=== PATIENT | female | born 1950 | race Caucasian/White ===

== ENCOUNTER 2022-04-19 01:26 | Inpatient (IN) ==
[2022-04-19] MEDS ORDERED: SODIUM CHLORIDE 0.9% 1000ML 1,000 ML IV STA (01:35)
[2022-04-19] MEDS ORDERED: ONDANSETRON INJ 2 MG/ML 2 ML VIAL IV STA ×2 (01:35→04:28)
--- NOTE | 2022-04-19 02:17 | Emergency Department Note ---
History of Present Illness General Chief complaint: Vomiting Stated complaint: VOMITING FOR 2 DAYS,NOT EATING Time Seen by Provider: 04/19/22 01:52 History of Present Illness 71-year-old female presents emergency department with a 1 day history of vomiting and diarrhea. Patient states that she tested positive for COVID yesterday at the clinic. Patient states her symptoms started 1 week ago. Patient states that when she vomits she vomits up phlegm. Patient states decreased p.o. intake and some associated diarrhea. Patient denies fever denies cough denies chest pain. There are no other mitigating or alleviating factors Home Medications Medication Instructions Recorded Confirmed Type Lexapro 10 mg PO DAILY 04/19/22 04/19/22 History atorvastatin 40 mg tablet 40 mg PO DAILY 04/19/22 04/19/22 History dulaglutide 0.75 mg/0.5 mL 0.75 mg subcut WK 04/19/22 04/19/22 History subcutaneous pen injector (Trulicity) empagliflozin 25 mg tablet 25 mg PO DAILY 04/19/22 04/19/22 History (Jardiance) glimepiride 2 mg PO DAILY 04/19/22 04/19/22 History lisinopril 2.5 mg tablet 2.5 mg PO DAILY 04/19/22 04/19/22 History Allergies Allergy/AdvReac Type Severity Reaction Status Date / Time Penicillins Allergy Unknown Verified 04/19/22 01:52 Past Med/Surg History Social History Smoking Status: Never smoker Preferred Language: Tanzanian Feels Safe at Home: Yes Immunizations: Past medical history includes type 2 diabetes, hypertension, pancreatitis after surgery. Past surgical history includes x3, cholecystitis with complications Review of Systems A total of 10 systems reviewed and were otherwise negative Constitutional: + body aches; no fever Respiratory: + cough Gastrointestinal: + vomiting Physical Exam Vital Signs Vital Signs - 24 hr 04/19/22 01:31 04/19/22 01:36 04/19/22 03:37 Temperature 36.7 C Temperature Source Temporal Artery Scan Pulse Rate 110 H Pulse Rate [Apical] 83 Respiratory Rate 16 17 Respiratory Effort / Characteristics Non-Labored Respiratory Depth Normal Blood Pressure 127/79 Blood Pressure [Right Arm] 142/83 H Blood Pressure Mean 95 Blood Pressure Mean [Right Arm] 102 Pulse Oximetry 99 99 Oxygen Delivery Method Room Air Room Air Room Air Sepsis Recent Fever Within 48 Hours No Sepsis New/Unexplained Change in Mental Status No Sepsis Action Taken by Nursing No Action Required GENERAL: Patient is awake alert in no acute distress patient is resting comfortably and showing no signs of anxiety EYES: The conjunctivae are clear. The pupils are round and reactive. EARS, NOSE, MOUTH AND THROAT: The nose is without any evidence of any deformity. Mucous membranes are moist. Tongue is midline. NECK: The neck is nontender and supple. RESPIRATORY: Normal respiratory effort is noted there is no evidence of wheezing rhonchi or rales CARDIOVASCULAR: Regular rate and rhythm noted there no murmurs rubs or gallops normal S1 normal S2. GASTROINTESTINAL: The abdomen is soft. Abdomen is nontender. BACK: No midline tenderness or or step-off noted range of motion in flexion extension as well as rotation no signs of muscle spasm noted MUSCULOSKELETAL/EXTREMITIES: There is no evidence of gross deformity full range of motion is noted in the hips and shoulders. SKIN: There is no obvious evidence of any rash. There are no petechiae, pallor or cyanosis noted. NEUROLOGIC: Patient is awake alert and oriented x3 strength is symmetric PSYCH: Normal affect Course Reevaluation(s) Reevaluation #1: Patient's heart rate is 83 on repeat examination telemetry shows normal sinus rhythm with a rate of 83 as interpreted by me Time: 02:20 Reevaluation #2: Patient started on IV fluids. The case was discussed with the [facility]ist for admission. Consultations Consultation #1: Spoke with the [facility] hospitalist Dr. Flores for admission he agrees with admission for inpatient admission for dehydration and elevated troponin Time: 04:05 Administered Medications Discontinued Medications Sodium Chloride (Nss 1000ml) 1,000 mls @ 999 mls/hr IV .Q1H1M STA Stop: 04/19/22 02:35 Last Infusion: 04/19/22 03:38 Dose: 0 mls/hr Documented By: Admin: 04/19/22 02:15 Dose: 999 mls/hr Documented By: BALBINA Sodium Chloride (Nss 1000ml) 1,000 mls @ 999 mls/hr IV .Q1H1M ONE Stop: 04/19/22 04:22 Last Admin: 04/19/22 03:38 Dose: 999 mls/hr Documented By: JAG Ondansetron HCl (Ondansetron Inj 2 Mg/Ml 2 Ml Vial) 4 mg IV NOW STA Stop: 04/19/22 01:36 Last Admin: 04/19/22 02:15 Dose: 4 mg Documented By: BALBINA Medical Decision Making Medical Records Attestation: I reviewed the patient's medical records. Home Medications Current Medication List: was personally reviewed by me Laboratory Data Attestation: I reviewed the patient's lab results. Patient has an elevated hemoglobin which makes me think that the patient is hemoconcentrated and dehydrated; patient has an elevated troponin of unknown jose l ology 04/19/22 Unknown 04/19/22 Unknown Lab Results 04/19/22 04/19/22 04/19/22 Range/Units 03:30 Unknown Unknown WBC 6.15 (4.8-10.8) K/ul RBC 5.15 (3.93-5.22) M/uL Hgb 16.4 H (12.0-16.0) g/dl Hct 45.8 H (34.1-44.9) % MCV 88.9 (80.0-100.0) fL MCH 31.8 (25.0-34.0) pg MCHC 35.8 (32.0-36.0) g/dL RDW Std Deviation 41.2 (36.4-46.3) fL RDW Coeff of [place] 12.6 (11.5-14.5) % Plt Count 195 (130-400) K/uL MPV 9.2 L (9.4-12.3) fL Immature Gran % (Auto) 0.8 % Neut % (Auto) 83.5 % Lymph % (Auto) 11.4 % [place] % (Auto) 3.9 % Eos % (Auto) 0.2 % Baso % (Auto) 0.2 % Neut # (Auto) 5.14 (1.4-6.5) K/uL Lymph # (Auto) 0.70 L (1.2-3.4) K/uL [place] # (Auto) 0.24 (0.24-0.82) K/uL Eos # (Auto) 0.01 (0-0.50) K/uL Baso # (Auto) 0.01 (0-0.2) K/uL Immature Gran # (Auto) 0.05 H (0.00-0.02) K/uL Sodium 138 (136-145) mmol/L Potassium 3.6 (3.5-5.1) mmol/L Chloride 99 (98-107) mmol/L Carbon Dioxide 22 (21-32) mmol/L Anion Gap 17 H (3-11) BUN 13 (6-23) mg/dl Creatinine 0.66 (0.6-1.2) mg/dl Est Cr Clr Drug Dosing 62.8 ml/min Est GFR ( Amer) 101.6 ml/min Est GFR (Non-Af Amer) 87.6 ml/min BUN/Creatinine Ratio 19.7 (10-20) Glucose 151 H (70-99(Fasting)) mg/dl Calcium 10.1 (8.5-10.1) mg/dl Total Bilirubin 1.4 H (0.2-1.0) mg/dl AST 31 (13-39) U/L ALT 16 (7-52) U/L Alkaline Phosphatase 79 (34-104) U/L Troponin I High Sens 64.9 H* (0-14) pg/ml Total Protein 7.9 (6.0-8.3) gm/dl Albumin 4.5 (3.4-5.0) gm/dl Globulin 3.4 (2.5-4.0) gm/dl Albumin/Globulin Ratio 1.3 (0.9-2) Lipase 14 (11-82) U/L Urine Color Urine Appearance (Clear) Urine pH (4.5-7.5) Ur Specific [place] (1.000-1.030) Urine Protein (Negative) Urine Glucose (UA) (Negative) Urine Ketones (Negative) Urine Blood (Negative) Urine Nitrite (Negative) Urine Bilirubin (Negative) Urine Urobilinogen (Negative) Ur Leukocyte Esterase (Negative) Urine WBC (Auto) (0-5) /hpf Urine RBC (Auto) (0-4) /hpf U Hyaline Cast (Auto) (0-5) /lpf U Epithel Cells (Auto) (0-5) /lpf Urine Bacteria (Auto) (Negative) SARS-CoV-2, RNA, NAAT POSITIVE A* (NEGATIVE) 04/19/22 Range/Units Unknown WBC (4.8-10.8) K/ul RBC (3.93-5.22) M/uL Hgb (12.0-16.0) g/dl Hct (34.1-44.9) % MCV (80.0-100.0) fL MCH (25.0-34.0) pg MCHC (32.0-36.0) g/dL RDW Std Deviation (36.4-46.3) fL RDW Coeff of [place] (11.5-14.5) % Plt Count (130-400) K/uL MPV (9.4-12.3) fL Immature Gran % (Auto) % Neut % (Auto) % Lymph % (Auto) % [place] % (Auto) % Eos % (Auto) % Baso % (Auto) % Neut # (Auto) (1.4-6.5) K/uL Lymph # (Auto) (1.2-3.4) K/uL [place] # (Auto) (0.24-0.82) K/uL Eos # (Auto) (0-0.50) K/uL Baso # (Auto) (0-0.2) K/uL Immature Gran # (Auto) (0.00-0.02) K/uL Sodium (136-145) mmol/L Potassium (3.5-5.1) mmol/L Chloride (98-107) mmol/L Carbon Dioxide (21-32) mmol/L Anion Gap (3-11) BUN (6-23) mg/dl Creatinine (0.6-1.2) mg/dl Est Cr Clr Drug Dosing ml/min Est GFR ( Amer) ml/min Est GFR (Non-Af Amer) ml/min BUN/Creatinine Ratio (10-20) Glucose (70-99(Fasting)) mg/dl Calcium (8.5-10.1) mg/dl Total Bilirubin (0.2-1.0) mg/dl AST (13-39) U/L ALT (7-52) U/L Alkaline Phosphatase (34-104) U/L Troponin I High Sens (0-14) pg/ml Total Protein (6.0-8.3) gm/dl Albumin (3.4-5.0) gm/dl Globulin (2.5-4.0) gm/dl Albumin/Globulin Ratio (0.9-2) Lipase (11-82) U/L Urine Color Yellow Urine Appearance Clear (Clear) Urine pH 5.0 (4.5-7.5) Ur Specific [place] 1.044 H (1.000-1.030) Urine Protein 1+ H (Negative) Urine Glucose (UA) 3+ H (Negative) Urine Ketones 4+ H (Negative) Urine Blood Negative (Negative) Urine Nitrite Negative (Negative) Urine Bilirubin Negative (Negative) Urine Urobilinogen Negative (Negative) Ur Leukocyte Esterase Negative (Negative) Urine WBC (Auto) 1-5 (0-5) /hpf Urine RBC (Auto) 0-4 (0-4) /hpf U Hyaline Cast (Auto) 1-5 (0-5) /lpf U Epithel Cells (Auto) >30 H (0-5) /lpf Urine Bacteria (Auto) Negative (Negative) SARS-CoV-2, RNA, NAAT (NEGATIVE) Imaging Data Attestation: I personally reviewed and interpreted this imaging study as follows: My Impression: Chest x-ray interpreted by me negative for infiltrate Radiologist's Impression: Chest X-Ray 04/19/22 02:12 SINGLE VIEW CHEST CLINICAL HISTORY: Cough FINDINGS: 2 AP, portable, upright chest radiographs are obtained. No prior studies are available for comparison at the time of dictation. The cardiomediast inal silhouette is unremarkable. The lungs and pleural spaces are clear. No pneumothorax is seen. The skeletal structures are osteopenic. The bony thorax is grossly intact. IMPRESSION: No active disease in the chest. ACT 112: Negative or not required by law. Electronically signed by: Bruno De La Paz M.D. 04/19/2022 2:40 AM ECG Data Attestation: I personally reviewed and interpreted this ECG as follows: Additional Comments: -EKG interpreted by me normal sinus rhythm rate of 80 left axis deviation, prolonged QTC at 507, no obvious ST segment elevation or depressiom, otherwise normal intervals MDM Narrative Medical decision making differential diagnosis includes dehydration, electrolyte abnormality, COVID, pneumonia, bronchitis, upper respiratory tract infection. Is to check labs, give IV fluids and nausea medicine Nursing notes reviewed and appreciated There are no external medical records for my review Patient has an elevated troponin, elevated hemoglobin, patient's clinical presentation is one of dehydration. Patient has a nonischemic EKG the etiology of the troponin is unknown at this time. She has no current chest pain. The case was discussed with the [facility] hospitalist for admission. Impression & Plan Acute dehydration, COVID-19, Elevated troponin Discharge Plan Visit Data Chief Complaint: Vomiting Stated Complaint: VOMITING FOR 2 DAYS,NOT EATING ED Provider: Thuan Hussein Discharge Problem: Acute dehydration, COVID-19, Elevated troponin Patient Disposition: Admitted As Inpatient Forms Stand Alone Forms: My [facility] Prescriptions Prescriptions: No Action atorvastatin 40 mg Tablet 40 mg PO DAILY lisinopril 2.5 mg Tablet 2.5 mg PO DAILY Jardiance 25 mg Tablet 25 mg PO DAILY Trulicity 0.75 mg/0.5 mL Pen Injector 0.75 mg SUBCUT WK Lexapro 10 mg PO DAILY glimepiride 2 mg PO DAILY Referrals Referrals: PCP,NO [Physician] -
[2022-04-19 02:26] LABS: Basophils # (auto) 0.01 K/uL (0-0.2); Basophils % (auto) 0.2 %; Eosinophils # (auto) 0.01 K/uL (0-0.50); Eosinophils % (auto) 0.2 %; Hematocrit (blood only) 45.8 % (34.1-44.9); Hemoglobin 16.4 g/dl (12.0-16.0); Immature Granulocytes # (auto) 0.05 K/uL (0.00-0.02); Immature Granulocytes % (auto) 0.8 %; Lymphocytes % (auto) 11.4 %; Mean Corpuscular Hemoglobin 31.8 pg (25.0-34.0); Mean Corpuscular Hgb Conc 35.8 g/dL (32.0-36.0); Mean Corpuscular Volume 88.9 fL (80.0-100.0); Mean Platelet Volume 9.2 fL (9.4-12.3); Monocytes # (auto) 0.24 K/uL (0.24-0.82); Monocytes % (auto) 3.9 %; Neutrophils # (auto) 5.14 K/uL (1.4-6.5); Neutrophils % (auto) 83.5 %; Platelet Count 195 K/uL (130-400); RDW Coefficient of Variation 12.6 % (11.5-14.5); RDW Standard Deviation 41.2 fL (36.4-46.3); Red Blood Count 5.15 M/uL (3.93-5.22); White Blood Count 6.15 K/ul (4.8-10.8)
[2022-04-19 02:31] LABS: Appearance Urine Clear (Clear); Bacteria Urine Automated Negative (Negative); Bilirubin Urine Negative (Negative); Blood Urine Negative (Negative); Color Urine Yellow; Epithelial Cell Urine Auto >30 /lpf (0-5); Glucose Urine UA 3+ (Negative); Ketones Urine 4+ (Negative); Leukocyte Esterase Urine Negative (Negative); Nitrite Urine Negative (Negative); Protein Urine 1+ (Negative); RBC Urine Automated 0-4 /hpf (0-4); Specific Gravity Urine 1.044 (1.000-1.030); Urobilinogen Urine Negative (Negative)
--- NOTE | 2022-04-19 02:42 | XRay Report ---
SINGLE VIEW CHEST CLINICAL HISTORY: Cough FINDINGS: 2 AP, portable, upright chest radiographs are obtained. No prior studies are available for comparison at the time of dictation. The cardiomediastinal silhouette is unremarkable. The lungs and pleural spaces are clear. No pneumothorax is seen. The skeletal structures are osteopenic. The bony t horax is grossly intact. IMPRESSION: No active disease in the chest. ACT 112: Negative or not required by law. Electronically signed by: Bruno De La Paz M.D. 04/19/2022 2:40 AM
[2022-04-19 02:58] LABS: Albumin Globulin Ratio 1.3 (0.9-2); Albumin Level 4.5 gm/dl (3.4-5.0); BUN Creatinine Ratio 19.7 (10-20); Bilirubin,Total 1.4 mg/dl (0.2-1.0); Calcium 10.1 mg/dl (8.5-10.1); Creatinine Clr Calc Pharmacy 62.8 ml/min; Est GFR (African American) 101.6 ml/min; Est GFR (Non-African American) 87.6 ml/min; Globulin 3.4 gm/dl (2.5-4.0); Potassium 3.6 mmol/L (3.5-5.1); Total Protein 7.9 gm/dl (6.0-8.3)
[2022-04-19 03:17] LABS: Troponin I High Sensitivity 64.9 pg/ml (0-14)
[2022-04-19] MEDS ORDERED: SODIUM CHLORIDE 0.9% 1000ML 1,000 ML IV ONE (03:22)
[2022-04-19] MEDS ORDERED: LACTATED RINGER'S 1,000 ML IV STA (04:49)
--- NOTE | 2022-04-19 04:55 | History & Physical Report ---
Date of Service April 19, 2022 Assessment & Plan (1) UGIB (upper gastrointestinal bleed): Plan: Transient hematemesis secondary to COVID-19 related gastroenteritis Esophagitis on CT Patient currently hemodynamically stable hypertension, slightly elevated secondary discomfort hyperlipidemia, on statin Rx DM2 on oral medications, suboptimal control as of recent hemoglobin A1c of 7.6 last February 2022 history of PE status post anticoagulation, secondary to confinement for pancreatitis about 20 years ago mood disorder, stable OBS Medical telemetry IV PPI Clear liquids for now GI consult Re: UGI B Supportive management for COVID-19 illness Basal bolus insulin, ISS BG goal 1 10-1 40, carb count coverage DVT prophylaxis. SCDs Re: GI bleed Full code Text document was generated using [employer] voice recognition software. It may contain grammatical or spelling errors. Kindly contact undersigned for clarification of any documentation item in question. History of Present Illness Chief Complaint: Vomiting, weakness, abdominal pain Primary Care Provider: Vy Mcclendon DO History obtained from patient, family, and records. Medical history significant for hypertension, hyperlipidemia, DM2 on oral medications, past history of pancreatitis, history of PE status post anticoagulation, mood disorder. Few days of watery diarrhea with achy abdominal pain. Transient hematemesis 2 days ago. No actual chest pain, productive cough, or shortness of breath. Dizziness symptoms without headache. Feels like something stuck in in the middle of her chest. 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 Has received COVID-19 vaccination except boosters. Patient brought to the ER for evaluation. Medical History as above 2015 colonoscopy showed internal hemorrhoids Surgical History : section, cholecystectomy, knee surgery Family History : Heart disease, colon cancer, Romeo-Sachs disease Personal/Social history : Non-smoker, no EtOH intake, school regional owner operator truck driver Allergies Allergy/AdvReac Type Severity Reaction Status Date / Time Penicillins Allergy Unknown Verified 04/19/22 01:52 Home Medications Medication Instructions Recorded Confirmed Type Lexapro 10 mg PO DAILY 04/19/22 04/19/22 History atorvastatin 40 mg tablet 40 mg PO DAILY 04/19/22 04/19/22 History dulaglutide 0.75 mg/0.5 mL 0.75 mg subcut WK 04/19/22 04/19/22 History subcutaneous pen injector (Trulicity) empagliflozin 25 mg tablet 25 mg PO DAILY 04/19/22 04/19/22 History (Jardiance) glimepiride 2 mg PO DAILY 04/19/22 04/19/22 History lisinopril 2.5 mg tablet 2.5 mg PO DAILY 04/19/22 04/19/22 History Past Med/Surg History Social History Smoking Status: Former smoker Second Hand Exposure: No; Do You Dip or Chew Tobacco: No; Tobacco Cessation Education Requested by Patient: No Hx Alcohol Use: No Hx Substance Use: No Preferred Language: Irish Communication Ability: Effective 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 Beliefs That Will Affect Care: None Current Living Situation: Spouse Other Information That Helps Us Care for You: No Feels Safe at Home: Yes Safety Concerns: Feels Safe At This Time Assistive Devices: None Review of Systems Review of Systems: As per HPI, all other systems reviewed and negative Physical Exam Physical Exam: GENERAL: Slightly uncomfortable, pleasant, no respiratory distress SKIN: Normal color, warm HEENT: [place] palpebral conjunctivae, no ptosis, dry buccal mucosa NECK : Supple, no tenderness CHEST : CTA, no tenderness HEART : RRR, no obvious murmurs ABDOMEN: Some distention, minimal epigastric tenderness EXTREMITIES : No LE swelling/tenderness, no other conspicuous deformities noted NEUROLOGIC : Coherent, no facial asymmetry, no other gross focality Results & Data Results & Data ([facility]) Vital Signs (Past 12 Hours) Vital Signs Temp Pulse Pulse Resp BP BP Pulse Ox 04/19/22 04:30 82 14 100 04/19/22 04:00 91 H 23 99 04/19/22 04:00 137/80 04/19/22 03:37 142/83 H 04/19/22 03:37 82 20 99 04/19/22 03:30 88 20 98 04/19/22 03:00 87 16 98 04/19/22 02:30 89 25 H 100 04/19/22 02:11 87 17 99 04/19/22 02:10 153/82 H 04/19/22 03:37 83 17 142/83 H 99 04/19/22 01:36 04/19/22 01:31 36.7 C 110 H 16 127/79 99 O2 Del Method 04/19/22 04:30 04/19/22 04:00 04/19/22 04:00 04/19/22 03:37 04/19/22 03:37 04/19/22 03:30 04/19/22 03:00 04/19/22 02:30 04/19/22 02:11 04/19/22 02:10 04/19/22 03:37 Room Air 04/19/22 01:36 Room Air 04/19/22 01:31 Room Air Laboratory Results Laboratory Results WBC 6.15 K/ul (4.8-10.8) 04/19/22 Unknown RBC 5.15 M/uL (3.93-5.22) 04/19/22 Unknown Hgb 16.4 g/dl (12.0-16.0) H 04/19/22 Unknown Hct 45.8 % (34.1-44.9) H 04/19/22 Unknown MCV 88.9 fL (80.0-100.0) 04/19/22 Unknown MCH 31.8 pg (25.0-34.0) 04/19/22 Unknown MCHC 35.8 g/dL (32.0-36.0) 04/19/22 Unknown RDW Std Deviation 41.2 fL (36.4-46.3) 04/19/22 Unknown RDW Coeff of Bayron 12.6 % (11.5-14.5) 04/19/22 Unknown Plt Count 195 K/uL (130-400) 04/19/22 Unknown MPV 9.2 fL (9.4-12.3) L 04/19/22 Unknown Immature Gran % (Auto) 0.8 % 04/19/22 Unknown Neut % (Auto) 83.5 % 04/19/22 Unknown Lymph % (Auto) 11.4 % 04/19/22 Unknown [place] % (Auto) 3.9 % 04/19/22 Unknown Eos % (Auto) 0.2 % 04/19/22 Unknown Baso % (Auto) 0.2 % 04/19/22 Unknown Neut # (Auto) 5.14 K/uL (1.4-6.5) 04/19/22 Unknown Lymph # (Auto) 0.70 K/uL (1.2-3.4) L 04/19/22 Unknown [place] # (Auto) 0.24 K/uL (0.24-0.82) 04/19/22 Unknown Eos # (Auto) 0.01 K/uL (0-0.50) 04/19/22 Unknown Baso # (Auto) 0.01 K/uL (0-0.2) 04/19/22 Unknown Immature Gran # (Auto) 0.05 K/uL (0.00-0.02) H 04/19/22 Unknown Sodium 138 mmol/L (136-145) 04/19/22 Unknown Potassium 3.6 mmol/L (3.5-5.1) 04/19/22 Unknown Chloride 99 mmol/L (98-107) 04/19/22 Unknown Carbon Dioxide 22 mmol/L (21-32) 04/19/22 Unknown Anion Gap 17 (3-11) H 04/19/22 Unknown BUN 13 mg/dl (6-23) 04/19/22 Unknown Creatinine 0.66 mg/dl (0.6-1.2) 04/19/22 Unknown Est Cr Clr Drug Dosing 62.8 ml/min 04/19/22 Unknown Est GFR ( Amer) 101.6 ml/min 04/19/22 Unknown Est GFR (Non-Af Amer) 87.6 ml/min 04/19/22 Unknown BUN/Creatinine Ratio 19.7 (10-20) 04/19/22 Unknown Glucose 151 mg/dl (70-99(Fasting)) H 04/19/22 Unknown Calcium 10.1 mg/dl (8.5-10.1) 04/19/22 Unknown Total Bilirubin 1.4 mg/dl (0.2-1.0) H 04/19/22 Unknown AST 31 U/L (13-39) 04/19/22 Unknown ALT 16 U/L (7-52) 04/19/22 Unknown Alkaline Phosphatase 79 U/L (34-104) 04/19/22 Unknown Troponin I High Sens 64.9 pg/ml (0-14) H* 04/19/22 Unknown Total Protein 7.9 gm/dl (6.0-8.3) 04/19/22 Unknown Albumin 4.5 gm/dl (3.4-5.0) 04/19/22 Unknown Globulin 3.4 gm/dl (2.5-4.0) 04/19/22 Unknown Albumin/Globulin Ratio 1.3 (0.9-2) 04/19/22 Unknown Lipase 14 U/L (11-82) 04/19/22 Unknown Urine Color Yellow 04/19/22 Unknown Urine Appearance Clear (Clear) 04/19/22 Unknown Urine pH 5.0 (4.5-7.5) 04/19/22 Unknown Ur Specific [place] 1.044 (1.000-1.030) H 04/19/22 Unknown Urine Protein 1+ (Negative) H 04/19/22 Unknown Urine Glucose (UA) 3+ (Negative) H 04/19/22 Unknown Urine Ketones 4+ (Negative) H 04/19/22 Unknown Urine Blood Negative (Negative) 04/19/22 Unknown Urine Nitrite Negative (Negative) 04/19/22 Unknown Urine Bilirubin Negative (Negative) 04/19/22 Unknown Urine Urobilinogen Negative (Negative) 04/19/22 Unknown Ur Leukocyte Esterase Negative (Negative) 04/19/22 Unknown Urine WBC (Auto) 1-5 /hpf (0-5) 04/19/22 Unknown Urine RBC (Auto) 0-4 /hpf (0-4) 04/19/22 Unknown U Hyaline Cast (Auto) 1-5 /lpf (0-5) 04/19/22 Unknown U Epithel Cells (Auto) >30 /lpf (0-5) H 04/19/22 Unknown Urine Bacteria (Auto) Negative (Negative) 04/19/22 Unknown SARS-CoV-2, RNA, NAAT POSITIVE (NEGATIVE) A* 04/19/22 03:30 Impressions Chest X-Ray 04/19/22 02:12 SINGLE VIEW CHEST CLINICAL HISTORY: Cough FINDINGS: 2 AP, portable, upright chest radiographs are obtained. No prior studies are available for comparison at the time of dictation. The cardiomediastinal silhouette is unremarkable. The lungs and pleural spaces are clear. No pneumothorax is seen. The skeletal structures are osteopenic. The bony thorax is grossly intact. IMPRESSION: No active disease in the chest. ACT 112: Negative or not required by law. Electronically signed by: Bruno De La Paz M.D. 04/19/2022 2:[address] abdomen pelvis: 1. Mild distal esophageal wall thickening with trace edema. Correlate clinically to exclude esophagitis. 2. Trace edema within the splenic hilum tracking along the greater curvature of the stomach. There is loculated fluid versus a cystic lesion within the lesser sac measuring up to 4.1 cm. Attention at follow-up recommended. 3. 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 Numerous upper abdominal collateral vessels. 4. Atrophy of the pancreatic body and tail. 5. No bowel obstruction or bowel wall thickening Diagnostic Findings EKG as per my interpretation : Rate 80, NSR, LAD, LAFB, no ischemia
[2022-04-19] MEDS ORDERED: PROMETHAZINE HCL 6.25 MG in SODIUM CHLORIDE 0.9% 50 ML IV PRN (05:00)
[2022-04-19] MEDS ORDERED: traMADol HCL 50 MG TABLET PO PRN (05:00)
[2022-04-19 05:17] LABS: Partial Thromboplastin Ratio 0.9; Partial Thromboplastin Time 24.2 Seconds (21.0-31.0)
[2022-04-19] MEDS ORDERED: PANTOprazole 40 MG in SYRINGE 0 ML IV STA (05:18)
[2022-04-19 05:48] LABS: Hemoglobin 13.6 g/dl (12.0-16.0)
[2022-04-19 06:11] LABS: Magnesium 1.7 mg/dl (1.7-2.4)
[2022-04-19 06:15] LABS: Troponin I High Sensitivity 122.4 pg/ml (0-14)
[2022-04-19] MEDS ORDERED: DEXTROSE 50% 50 ML SYRINGE IV PRN (06:22)
[2022-04-19] MEDS ORDERED: GLUCAGON FOR INJ 1 MG VIAL SQ PRN (06:22)
[2022-04-19] MEDS ORDERED: GLUCOSE 40% GEL 15 GM TUBE PO PRN (06:22)
[2022-04-19] MEDS ORDERED: ACETAMINOPHEN 325 MG TAB PO PRN (06:22)
[2022-04-19] MEDS ORDERED: OPTIRAY 350 100ml IV ONE (06:22)
[2022-04-19] MEDS ORDERED: CARBOHYDRATES FOR HYPOGLYCEMIA PO PRN (06:22)
[2022-04-19] MEDS ORDERED: GLUCOSE 10 TAB/TUBE PO PRN (06:22)
--- NOTE | 2022-04-19 06:46 | CT Scan Report ---
ABDOMEN AND PELVIS CT WITH IV CONTRAST CT DOSE: 294.01 mGy.cm HISTORY: Acute nausea with vomiting and upper GI bleed abd pain ugib TECHNIQUE: Multiaxial CT images of the abdomen and pelvis were performed following the IV administrat ion of 82 cc of Optiray, A dose lowering technique was utilized adhering to the principles of ALARA. COMPARISON STUDY: Chest radiograph of same day FINDINGS: Clear lung bases. 4 mm fissural nodule of the right lung base on image 18 series 3 likely r epresents a benign lymph node. No pneumatosis or pneumoperitoneum. Unremarkable spleen. The adrenal glands are within normal limits as well. The gallbladder appears to be surgically absent. Atrophic pancreatic body and tail. There is a hypodense structure noted within the lesser sac with the medial aspect abutting the pancreas in the anterior aspect abutting the stoma ch measuring 4.1 x 2.1 x 3.7 cm with water attenuation. No pancreatic ductal dilation. There are a fe w scattered calcifications noted throughout the liver. Cavernous transformation of the portal vein wi th numerous upper abdominal collateral vessels. Trace edema within the lesser sac adjacent to the spl enic hilum and greater curvature of the stomach. 1.4 cm calcified structure about the gastric fundus, image 94. Unremarkable kidneys. There is no hydronephrosis. Mild urinary bladder wall thickening with partial d istention. Unremarkable uterus. Atherosclerosis of the aorta and branch vessels. Unremarkable IVC. No lymphadenopathy identified. Mild distal esophageal wall thickening with mild adjacent edema. No zander l obstruction or bowel wall thickening. The appendix is not definitively seen. No secondary signs of acute appendicitis. Unremarkable soft tissues. No acute fracture identified. IMPRESSION: 1. Mild distal esophageal wall thickening with trace edema. Correlate clinically to exclude esophagit is. 2. Trace edema within the splenic hilum tracking along the greater curvature of the stomach. There is loculated fluid versus a cystic lesion within the lesser sac measuring up to 4.1 cm. Attention at fo llow-up recommended. 3. 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 Numerous upper abdominal colla teral vessels. 4. Atrophy of the pancreatic body and tail. 5. No bowel obstruction or bowel wall thickening. ACT 112: Negative or not required by law. The above report was generated using voice recognition software. It may contain grammatical, syntax o r spelling errors. Electronically signed by: Jimbo Perry M.D. 04/19/2022 6:44 AM
[2022-04-19] MEDS: INSULIN ASPART PER UNIT SC SCH ×4 (08:04→22:09)
[2022-04-19] MEDS: ATORVASTATIN 40 MG TAB PO SCH (08:38)
[2022-04-19] MEDS: ESCITALOPRAM OXALATE 10 MG TAB PO SCH (08:38)
[2022-04-19] MEDS: lisinopril 2.5 MG TAB PO SCH (08:38)
[2022-04-19] MEDS: LANTUS PER UNIT CHARGE SQ SCH (08:46)
--- NOTE | 2022-04-19 09:47 | Gastrointestinal Consultation ---
Date of Consultation April 19, 2022 Assessment & Plan (1) UGIB (upper gastrointestinal bleed): 71 year old female with COVID-19 who reports a plethora of GI s/s who notes hematemesis at home after episodes of emesis. CTAP w/ esophagitis. HGB stable No BUN elevation Recommend conservative management with IV PPI BID x 48 hours while admitted then PO BID until EGD completed OP EGD Antiemetics as needed Thank you for allowing us to participate in the care of this patient. Please call with any acute changes, questions or concerns. Please see addendum below with additional recommendation from my supervising physician. Supervising Physician Co-Signing Physician Notes Late entry: Patient was seen and examined on 04/19 with ORLIN Mayorga whose note reflect our findings and plan. Outpatient EGD to be arranged. History of Present Illness Reason for Consultation: hematemesis Requesting Physician: Abdulaziz Attending Physician: Allen Cintron MD History of Present Illness 71 year old female with history of hypertension, hyperlipidemia, DM2 on oral medications, past history of pancreatitis, history of PE status post anticoagulation, mood disorder admitted with COVID-19, GI asked to evaluated for hematemesis. Pt was seen and evaluated, chart reviewed. Notes that majority of his COVID symptoms are GI. After bought of emesis, developed small volume bloody emesis. Self limiting. No further epsidoes reported. No black or bloody stools. CTAP 2022: Mild distal esophageal wall thickening with trace edema. Correlate clinically to exclude esophagitis. 2. Trace edema within the splenic hilum tracking along the greater curvature of the stomach. There is loculated fluid versus a cystic lesion within the lesser sac measuring up to 4.1 cm. Attention at follow-up recommended. 3. 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 Numerous upper abdominal collateral vessels. 4. Atrophy of the pancreatic body and tail. 5. No bowel obstruction or bowel wall thickening. Allergies Allergy/AdvReac Type Severity Reaction Status Date / Time Penicillins Allergy Unknown Verified 04/19/22 01:52 Home Medications Medication Instructions Recorded Confirmed Type Lexapro 10 mg PO DAILY 04/19/22 04/19/22 History atorvastatin 40 mg tablet 40 mg PO DAILY 04/19/22 04/19/22 History dulaglutide 0.75 mg/0.5 mL 0.75 mg subcut WK 04/19/22 04/19/22 History subcutaneous pen injector (Trulicity) empagliflozin 25 mg tablet 25 mg PO DAILY 04/19/22 04/19/22 History (Jardiance) glimepiride 2 mg PO DAILY 04/19/22 04/19/22 History lisinopril 2.5 mg tablet 2.5 mg PO DAILY 04/19/22 04/19/22 History Patient History Social History Smoking Status: Former smoker Second Hand Exposure: No; Do You Dip or Chew Tobacco: No; Tobacco Cessation Education Requested by Patient: No Hx Alcohol Use: No Hx Substance Use: No Preferred Language: Tajik Communication Ability: Effective Mail Caller Required: No Beliefs That Will Affect Care: None Current Living Situation: Spouse Other Information That Helps Us Care for You: No Feels Safe at Home: Yes Safety Concerns: Feels Safe At This Time Assistive Devices: None Review of Systems Review of Systems: All systems reviewed & are unremarkable except as noted in HPI & below Physical Exam Constitutional: WD/WN, vitals as above Respiratory: normal respiratory effort, lungs clear to auscultation Cardiovascular: Rate/Rhythm: regular rate Gastrointestinal (Abdomen): normal bowel sounds, soft, nontender, no hepatosplenomegaly Results & Data ([facility]) Vital Signs (Past 12 Hours) Vital Signs Temp Pulse Pulse Resp BP BP Pulse Ox 04/19/22 09:00 74 15 04/19/22 09:00 110/56 L 96 04/19/22 08:38 76 14 04/19/22 08:38 123/60 04/19/22 08:00 78 19 04/19/22 08:00 101/63 96 04/19/22 07:00 80 15 97 04/19/22 07:00 114/67 04/19/22 07:16 04/19/22 07:16 81 20 114/67 99 04/19/22 06:53 04/19/22 06:00 79 18 97 04/19/22 06:00 123/62 04/19/22 05:30 77 14 99 04/19/22 05:16 98 04/19/22 04:30 82 14 100 04/19/22 04:00 91 H 23 99 04/19/22 04:00 137/80 04/19/22 03:37 142/83 H 04/19/22 03:37 82 20 99 04/19/22 03:30 88 20 98 04/19/22 03:00 87 16 98 04/19/22 02:30 89 25 H 100 04/19/22 02:11 87 17 99 04/19/22 02:10 153/82 H 04/19/22 03:37 83 17 142/83 H 99 04/19/22 01:36 04/19/22 01:31 36.7 C 110 H 16 127/79 99 Pulse Ox O2 Del Method O2 Del Method 04/19/22 09:00 04/19/22 09:00 04/19/22 08:38 04/19/22 08:38 04/19/22 08:00 04/19/22 08:00 04/19/22 07:00 04/19/22 07:00 04/19/22 07:16 Room Air 04/19/22 07:16 Room Air 04/19/22 06:53 98 Room Air 04/19/22 06:00 04/19/22 06:00 04/19/22 05:30 04/19/22 05:16 04/19/22 04:30 04/19/22 04:00 04/19/22 04:00 04/19/22 03:37 04/19/22 03:37 04/19/22 03:30 04/19/22 03:00 04/19/22 02:30 04/19/22 02:11 04/19/22 02:10 04/19/22 03:37 Room Air 04/19/22 01:36 Room Air 04/19/22 01:31 Room Air Laboratory Results 04/19/22 04/19/22 04/19/22 Range/Units Unknown Unknown Unknown WBC (4.8-10.8) K/ul RBC (3.93-5.22) M/uL Hgb (12.0-16.0) g/dl Hct (34.1-44.9) % MCV (80.0-100.0) fL MCH (25.0-34.0) pg MCHC (32.0-36.0) g/dL RDW Std Deviation (36.4-46.3) fL RDW Coeff of Bayron (11.5-14.5) % Plt Count (130-400) K/uL MPV (9.4-12.3) fL Immature Gran % (Auto) % Neut % (Auto) % Lymph % (Auto) % Barnes % (Auto) % Eos % (Auto) % Baso % (Auto) % Neut # (Auto) (1.4-6.5) K/uL Lymph # (Auto) (1.2-3.4) K/uL Barnes # (Auto) (0.24-0.82) K/uL Eos # (Auto) (0-0.50) K/uL Baso # (Auto) (0-0.2) K/uL Immature Gran # (Auto) (0.00-0.02) K/uL APTT 24.2 (21.0-31.0) Seconds PTT Ratio 0.9 Sodium 138 (136-145) mmol/L Potassium 3.6 (3.5-5.1) mmol/L Chloride 99 (98-107) mmol/L Carbon Dioxide 22 (21-32) mmol/L Anion Gap 17 H (3-11) BUN 13 (6-23) mg/dl Creatinine 0.66 (0.6-1.2) mg/dl Est Cr Clr Drug Dosing 62.8 ml/min Est GFR ( Amer) 101.6 ml/min Est GFR (Non-Af Amer) 87.6 ml/min BUN/Creatinine Ratio 19.7 (10-20) Glucose 151 H (70-99(Fasting)) mg/dl POC Glucose (70-99) mg/dl Calcium 10.1 (8.5-10.1) mg/dl Magnesium (1.7-2.4) mg/dl Total Bilirubin 1.4 H (0.2-1.0) mg/dl AST 31 (13-39) U/L ALT 16 (7-52) U/L Alkaline Phosphatase 79 (34-104) U/L Troponin I High Sens 64.9 H* (0-14) pg/ml Total Protein 7.9 (6.0-8.3) gm/dl Albumin 4.5 (3.4-5.0) gm/dl Globulin 3.4 (2.5-4.0) gm/dl Albumin/Globulin Ratio 1.3 (0.9-2) Lipase 14 (11-82) U/L Urine Color Yellow Urine Appearance Clear (Clear) Urine pH 5.0 (4.5-7.5) Ur Specific [place] 1.044 H (1.000-1.030) Urine Protein 1+ H (Negative) Urine Glucose (UA) 3+ H (Negative) Urine Ketones 4+ H (Negative) Urine Blood Negative (Negative) Urine Nitrite Negative (Negative) Urine Bilirubin Negative (Negative) Urine Urobilinogen Negative (Negative) Ur Leukocyte Esterase Negative (Negative) Urine WBC (Auto) 1-5 (0-5) /hpf Urine RBC (Auto) 0-4 (0-4) /hpf U Hyaline Cast (Auto) 1-5 (0-5) /lpf U Epithel Cells (Auto) >30 H (0-5) /lpf Urine Bacteria (Auto) Negative (Negative) SARS-CoV-2, RNA, NAAT (NEGATIVE) Blood Type Antibody Screen 04/19/22 04/19/22 04/19/22 Range/Units Unknown 07:22 05:25 WBC 6.15 (4.8-10.8) K/ul RBC 5.15 (3.93-5.22) M/uL Hgb 16.4 H 13.6 (12.0-16.0) g/dl Hct 45.8 H 38.0 (34.1-44.9) % MCV 88.9 (80.0-100.0) fL MCH 31.8 (25.0-34.0) pg MCHC 35.8 (32.0-36.0) g/dL RDW Std Deviation 41.2 (36.4-46.3) fL RDW Coeff of Bayron 12.6 (11.5-14.5) % Plt Count 195 (130-400) K/uL MPV 9.2 L (9.4-12.3) fL Immature Gran % (Auto) 0.8 % Neut % (Auto) 83.5 % Lymph % (Auto) 11.4 % Barnes % (Auto) 3.9 % Eos % (Auto) 0.2 % Baso % (Auto) 0.2 % Neut # (Auto) 5.14 (1.4-6.5) K/uL Lymph # (Auto) 0.70 L (1.2-3.4) K/uL Barnes # (Auto) 0.24 (0.24-0.82) K/uL Eos # (Auto) 0.01 (0-0.50) K/uL Baso # (Auto) 0.01 (0-0.2) K/uL Immature Gran # (Auto) 0.05 H (0.00-0.02) K/uL APTT (21.0-31.0) Seconds PTT Ratio Sodium (136-145) mmol/L Potassium (3.5-5.1) mmol/L Chloride (98-107) mmol/L Carbon Dioxide (21-32) mmol/L Anion Gap (3-11) BUN (6-23) mg/dl Creatinine (0.6-1.2) mg/dl Est Cr Clr Drug Dosing ml/min Est GFR ( Amer) ml/min Est GFR (Non-Af Amer) ml/min BUN/Creatinine Ratio (10-20) Glucose (70-99(Fasting)) mg/dl POC Glucose 88 (70-99) mg/dl Calcium (8.5-10.1) mg/dl Magnesium (1.7-2.4) mg/dl Total Bilirubin (0.2-1.0) mg/dl AST (13-39) U/L ALT (7-52) U/L Alkaline Phosphatase (34-104) U/L Troponin I High Sens (0-14) pg/ml Total Protein (6.0-8.3) gm/dl Albumin (3.4-5.0) gm/dl Globulin (2.5-4.0) gm/dl Albumin/Globulin Ratio (0.9-2) Lipase (11-82) U/L Urine Color Urine Appearance (Clear) Urine pH (4.5-7.5) Ur Specific [place] (1.000-1.030) Urine Protein (Negative) Urine Glucose (UA) (Negative) Urine Ketones (Negative) Urine Blood (Negative) Urine Nitrite (Negative) Urine Bilirubin (Negative) Urine Urobilinogen (Negative) Ur Leukocyte Esterase (Negative) Urine WBC (Auto) (0-5) /hpf Urine RBC (Auto) (0-4) /hpf U Hyaline Cast (Auto) (0-5) /lpf U Epithel Cells (Auto) (0-5) /lpf Urine Bacteria (Auto) (Negative) SARS-CoV-2, RNA, NAAT (NEGATIVE) Blood Type Antibody Screen 04/19/22 04/19/22 04/19/22 Range/Units 05:25 05:25 03:30 WBC (4.8-10.8) K/ul RBC (3.93-5.22) M/uL Hgb (12.0-16.0) g/dl Hct (34.1-44.9) % MCV (80.0-100.0) fL MCH (25.0-34.0) pg MCHC (32.0-36.0) g/dL RDW Std Deviation (36.4-46.3) fL RDW Coeff of Bayron (11.5-14.5) % Plt Count (130-400) K/uL MPV (9.4-12.3) fL Immature Gran % (Auto) % Neut % (Auto) % Lymph % (Auto) % Barnes % (Auto) % Eos % (Auto) % Baso % (Auto) % Neut # (Auto) (1.4-6.5) K/uL Lymph # (Auto) (1.2-3.4) K/uL Barnes # (Auto) (0.24-0.82) K/uL Eos # (Auto) (0-0.50) K/uL Baso # (Auto) (0-0.2) K/uL Immature Gran # (Auto) (0.00-0.02) K/uL APTT (21.0-31.0) Seconds PTT Ratio Sodium (136-145) mmol/L Potassium (3.5-5.1) mmol/L Chloride (98-107) mmol/L Carbon Dioxide (21-32) mmol/L Anion Gap (3-11) BUN (6-23) mg/dl Creatinine (0.6-1.2) mg/dl Est Cr Clr Drug Dosing ml/min Est GFR ( Amer) ml/min Est GFR (Non-Af Amer) ml/min BUN/Creatinine Ratio (10-20) Glucose (70-99(Fasting)) mg/dl POC Glucose (70-99) mg/dl Calcium (8.5-10.1) mg/dl Magnesium 1.7 (1.7-2.4) mg/dl Total Bilirubin (0.2-1.0) mg/dl AST (13-39) U/L ALT (7-52) U/L Alkaline Phosphatase (34-104) U/L Troponin I High Sens 122.4 H* D (0-14) pg/ml Total Protein (6.0-8.3) gm/dl Albumin (3.4-5.0) gm/dl Globulin (2.5-4.0) gm/dl Albumin/Globulin Ratio (0.9-2) Lipase (11-82) U/L Urine Color Urine Appearance (Clear) Urine pH (4.5-7.5) Ur Specific [place] (1.000-1.030) Urine Protein (Negative) Urine Glucose (UA) (Negative) Urine Ketones (Negative) Urine Blood (Negative) Urine Nitrite (Negative) Urine Bilirubin (Negative) Urine Urobilinogen (Negative) Ur Leukocyte Esterase (Negative) Urine WBC (Auto) (0-5) /hpf Urine RBC (Auto) (0-4) /hpf U Hyaline Cast (Auto) (0-5) /lpf U Epithel Cells (Auto) (0-5) /lpf Urine Bacteria (Auto) (Negative) SARS-CoV-2, RNA, NAAT POSITIVE A* (NEGATIVE) Blood Type Pending Antibody Screen Pending
[2022-04-19 12:51] LABS: Hematocrit (blood only) 37.2 % (34.1-44.9); Hemoglobin 13.3 g/dl (12.0-16.0)
[2022-04-19] MEDS ORDERED: REMDESIVIR 200 MG in SODIUM CHLORIDE 0.9% 210 ML IV STA (17:08)
--- NOTE | 2022-04-19 18:18 | Hospitalist Progress Note ---
Date of Service April 19, 2022 Assessment & Plan (1) UGIB (upper gastrointestinal bleed): Plan: Transient hematemesis secondary to COVID-19 related gastroenteritis Esophagitis on CT -- Hemoglobin stable No recurrence of hematemesis --GI consulted, plan for outpatient EGD --Diet advanced Monitor closely COVID-19 infection --Not hypoxic O2 sats more than 94% --Chest x-ray: No pneumonia --Discussed with patient regarding risks and benefits of remdesivir, patient agreeable to proceed with remdesivir --Monitor liver and renal function hypertension -- Blood pressure improving hyperlipidemia, on statin Rx DM2 on oral medications, suboptimal control as of recent hemoglobin A1c of 7.6 last February 2022 history of PE status post anticoagulation, secondary to confinement for pancreatitis about 20 years ago mood disorder, stable Basal bolus insulin, ISS BG goal 1 10-1 40, carb count coverage DVT prophylaxis. SCDs Re: GI bleed Full code Disposition Anticipate discharge to home in 1 to 2 days Admission and Anticipated Discharge Date Admission Date: April 19, 2022 Subjective Follow-up for hematemesis, COVID-19, etc. Seen resting in bed, comfortable, not in distress, in good spirits States she feels better today compared to yesterday No recurrence of hematemesis, nausea, vomiting, abdominal pain Tolerating solid food well No diarrhea Has occasional dry cough, mild sore throat, but no shortness of breath No fevers or chills No other symptoms Review of Systems Review of Systems: all noted and negative except for above Physical Exam Physical Exam: General- oriented x 3, not in distress, speaks in sentences with no effort or accessory muscle use Eyes- anicteric Neck- no JVD Lungs- clear BS bilaterally, no rales/wheezes Heart- normal rate, regular rhythm; no murmurs Abdomen- normal bowel sounds, nondistended, soft, nontender Extremities- no pretibial edema, no calf tenderness Neuro- alert, oriented x 3; no gross focal neurologic deficits Skin- warm & dry Results & Data Results & Data ([facility]) Vital Signs (Past 12 Hours) Vital Signs Temp Pulse Pulse Resp BP BP Pulse Ox 04/19/22 15:31 36.9 C 73 20 101/63 97 04/19/22 15:23 80 04/19/22 13:38 36.3 C L 91 H 18 111/74 987 H 04/19/22 11:09 80 20 98 04/19/22 11:09 103/57 L 04/19/22 10:00 86 17 96 04/19/22 10:00 95/55 L 04/19/22 09:00 74 15 04/19/22 09:00 110/56 L 96 04/19/22 08:38 76 14 04/19/22 08:38 123/60 04/19/22 08:00 78 19 04/19/22 08:00 101/63 96 04/19/22 07:00 80 15 97 04/19/22 07:00 114/67 04/19/22 07:16 04/19/22 07:16 81 20 114/67 99 04/19/22 06:53 Pulse Ox O2 Del Method O2 Del Method 04/19/22 15:31 Room Air 04/19/22 15:23 04/19/22 13:38 Room Air 04/19/22 11:09 04/19/22 11:09 04/19/22 10:00 04/19/22 10:00 04/19/22 09:00 04/19/22 09:00 04/19/22 08:38 04/19/22 08:38 04/19/22 08:00 04/19/22 08:00 04/19/22 07:00 04/19/22 07:00 04/19/22 07:16 Room Air 04/19/22 07:16 Room Air 04/19/22 06:53 98 Room Air all noted and reviewed including below
[2022-04-19] MEDS: PANTOprazole 40 MG in SYRINGE 0 ML IV SCH (20:42)
[2022-04-19] MEDS ORDERED: LACTATED RINGER'S 1,000 ML IV ONE (20:53)
[2022-04-19] MEDS: MELATONIN 3 MG TAB PO PRN (21:15)
--- NOTE | 2022-04-19 22:11 | Electrocardiogram Report ---
Test Reason : Blood Pressure : / mmHG Vent. Rate : 080 BPM Atrial Rate : 080 BPM P-R Int : 134 ms QRS Dur : 076 ms QT Int : 440 ms P-R-T Axes : 056 -31 046 degrees QTc Int : 507 ms Normal sinus rhythm Left axis deviation Prolonged QT Abnormal ECG When compared with ECG of 07-JUL-2011 10:50, QT has lengthened Confirmed by Blayne Espinoza ([id number]) on 04/19/2022 10:11:22 PM Referred By: REFERRED SELF Confirmed By:Blayne Espinoza
[2022-04-20 06:47] LABS: Basophils # (auto) 0.01 K/uL (0-0.2); Basophils % (auto) 0.2 %; Eosinophils # (auto) 0.04 K/uL (0-0.50); Eosinophils % (auto) 0.9 %; Hematocrit (blood only) 34.7 % (34.1-44.9); Hemoglobin 12.6 g/dl (12.0-16.0); Immature Granulocytes # (auto) 0.02 K/uL (0.00-0.02); Immature Granulocytes % (auto) 0.5 %; Lymphocytes # (auto) 1.32 K/uL (1.2-3.4); Lymphocytes % (auto) 29.9 %; Mean Corpuscular Hemoglobin 32.1 pg (25.0-34.0); Mean Corpuscular Hgb Conc 36.3 g/dL (32.0-36.0); Mean Corpuscular Volume 88.5 fL (80.0-100.0); Monocytes # (auto) 0.35 K/uL (0.24-0.82); Monocytes % (auto) 7.9 %; Neutrophils # (auto) 2.67 K/uL (1.4-6.5); Neutrophils % (auto) 60.6 %; Platelet Count 141 K/uL (130-400); RDW Coefficient of Variation 12.8 % (11.5-14.5); RDW Standard Deviation 41.6 fL (36.4-46.3); Red Blood Count 3.92 M/uL (3.93-5.22); White Blood Count 4.41 K/ul (4.8-10.8)
[2022-04-20 07:35] LABS: Albumin Globulin Ratio 1.7 (0.9-2); Albumin Level 3.3 gm/dl (3.4-5.0); BUN Creatinine Ratio 17.2 (10-20); Bilirubin,Total 0.5 mg/dl (0.2-1.0); Calcium 8.3 mg/dl (8.5-10.1); Creatinine Clr Calc Pharmacy 71.5 ml/min; Est GFR (Non-African American) 91.4 ml/min; Potassium 3.2 mmol/L (3.5-5.1); Total Protein 5.3 gm/dl (6.0-8.3)
[2022-04-20] MEDS ORDERED: POTASSIUM CHLORIDE CRTAB 20 MEQ TABCR PO STA (08:08)
[2022-04-20] MEDS: PANTOprazole 40 MG in SYRINGE 0 ML IV SCH ×2 (08:09→21:47)
[2022-04-20] MEDS: LANTUS PER UNIT CHARGE SQ SCH (08:49)
[2022-04-20] MEDS: INSULIN ASPART PER UNIT SC SCH ×4 (08:49→22:34)
[2022-04-20] MEDS: lisinopril 2.5 MG TAB PO SCH (09:36)
[2022-04-20] MEDS: ATORVASTATIN 40 MG TAB PO SCH (09:36)
[2022-04-20] MEDS: ESCITALOPRAM OXALATE 10 MG TAB PO SCH (09:36)
--- NOTE | 2022-04-20 15:23 | Hospitalist Progress Note ---
Date of Service April 20, 2022 Assessment & Plan (1) UGIB (upper gastrointestinal bleed): Plan: Transient hematemesis secondary to COVID-19 related gastroenteritis Esophagitis on CT -- no recurrence of hematemesis while admitted -- Hemoglobin remained stable ~13 --GI consulted, plan for outpatient EGD --Diet advanced -- had nausea this AM improving monitor COVID-19 infection --Not hypoxic O2 sats more than 94% --Chest x-ray: No pneumonia -- high risk for disease progression given age, comorbidities --Discussed with patient regarding risks and benefits of remdesivir, patient agreeable to proceed with remdesivir -- continue Remdesivir Day #2 renal, liver function OK hypertension -- Blood pressure improving hyperlipidemia, on statin Rx DM2 on oral medications, suboptimal control as of recent hemoglobin A1c of 7.6 last February 2022 history of PE status post anticoagulation, secondary to confinement for pancreatitis about 20 years ago mood disorder, stable Basal bolus insulin, ISS BG goal 1 10-1 40, carb count coverage DVT prophylaxis. SCDs Re: GI bleed Full code Disposition Anticipate discharge to home in 1 to 2 days Admission and Anticipated Discharge Date Admission Date: April 19, 2022 Subjective ff up for UGIB, COVID 19 infection, etc seen resting in bed, comfortable states she was nauseated this morning improved after lunch no abdominal pain, hematemesis, diarrhea has occasional dry cough no dyspnea, chest pain, fever/chills no other symptoms Review of Systems Review of Systems: all noted and negative except for above Physical Exam Physical Exam: General- oriented x 3, not in distress, speaks in sentences with no effort or accessory muscle use Eyes- anicteric Neck- no JVD Lungs- clear breath sounds bilaterally, no crackles, no wheezing Heart- normal rate, regular rhythm; no murmurs Abdomen- normal bowel sounds, nondistended, soft, nontender Extremities- no pretibial edema, no calf tenderness Neuro- alert, oriented x 3; no gross focal neurologic deficits Skin- warm & dry Results & Data Results & Data ([facility]) Vital Signs (Past 12 Hours) Vital Signs Temp Pulse Pulse Resp BP Pulse Ox O2 Del Method 04/20/22 11:13 36.8 C 67 18 113/66 95 Room Air 04/20/22 08:15 Room Air 04/20/22 07:53 36.6 C 66 18 110/68 97 Room Air 04/20/22 07:27 68 04/20/22 03:25 36.8 C 65 18 100/62 96 Room Air all noted and reviewed including below
[2022-04-20] MEDS ORDERED: REMDESIVIR 100 MG in SODIUM CHLORIDE 0.9% 230 ML IV SCH (20:00)
[2022-04-20] MEDS: MELATONIN 3 MG TAB PO PRN (21:53)
[2022-04-21] MEDS: INSULIN ASPART PER UNIT SC SCH ×2 (08:09→12:27)
[2022-04-21] MEDS: LANTUS PER UNIT CHARGE SQ SCH (08:12)
[2022-04-21] MEDS: PANTOprazole 40 MG in SYRINGE 0 ML IV SCH (08:18)
[2022-04-21] MEDS: ESCITALOPRAM OXALATE 10 MG TAB PO SCH (08:19)
[2022-04-21] MEDS: lisinopril 2.5 MG TAB PO SCH (08:19)
[2022-04-21] MEDS: ATORVASTATIN 40 MG TAB PO SCH (08:19)
[2022-04-21 09:41] LABS: Albumin Globulin Ratio 1.4 (0.9-2); Albumin Level 3.4 gm/dl (3.4-5.0); Bilirubin,Total 0.7 mg/dl (0.2-1.0); Calcium 8.5 mg/dl (8.5-10.1); Creatinine Clr Calc Pharmacy 82.9 ml/min; Est GFR (African American) 111.3 ml/min; Globulin 2.4 gm/dl (2.5-4.0); Potassium 3.3 mmol/L (3.5-5.1); Total Protein 5.8 gm/dl (6.0-8.3)
--- NOTE | 2022-04-21 10:00 | XRay Report ---
XR chest 1V portable CLINICAL HISTORY: ff up, covid infection TECHNIQUE: Single frontal radiograph of the chest was obtained. Comparison: Comparison is made to chest radiograph 04/19/2022 FINDINGS: No lines and tubes are seen. The cardiomediastinal silhouette is normal. The lungs are clear. No evid ence of pleural effusion or pneumothorax. IMPRESSION: No acute abnormalities and in particular no evidence of pneumonia. ACT 112: Negative or not required by law. Electronically signed by: Rafy Crowley M.D. 04/21/2022 9:58 AM
--- NOTE | 2022-04-21 15:27 | Discharge Summary ---
Date of Service April 21, 2022 Admission HPI Per Admitting Provider History obtained from patient, family, and records. Medical history significant for hypertension, hyperlipidemia, DM2 on oral medications, past history of pancreatitis, history of PE status post anticoagulation, mood disorder. Few days of watery diarrhea with achy abdominal pain. Transient hematemesis 2 days ago. No actual chest pain, productive cough, or shortness of breath. Dizziness symptoms without headache. Feels like something stuck in in the middle of her chest. 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 Has received COVID-19 vaccination except boosters. Patient brought to the ER for evaluation. Admission Exam Per Admitting Provider GENERAL: Slightly uncomfortable, pleasant, no respiratory distress SKIN: Normal color, warm HEENT: [place] palpebral conjunctivae, no ptosis, dry buccal mucosa NECK : Supple, no tenderness CHEST : CTA, no tenderness HEART : RRR, no obvious murmurs ABDOMEN: Some distention, minimal epigastric tenderness EXTREMITIES : No LE swelling/tenderness, no other conspicuous deformities noted NEUROLOGIC : Coherent, no facial asymmetry, no other gross focality Principal Diagnosis Upper GI bleed COVID-19 infection Discharge Exam Constitutional: WD/WN, vitals as above, NAD, sitting up in bed, pleasant, conversing easily Respiratory: normal respiratory effort, lungs clear to auscultation, no wheeze, rales, rhonchi. Normal insp/exp effort, no accessory muscle use Cardiovascular: RRR, no murmur, no edema Vessels: no JVD or carotid bruit Chest: normal inspection of chest Abdomen: normal bowel sounds, soft, nontender, no hepatosplenomegaly Musculoskeletal: no cyanosis or clubbing, extremities motor strength 5/5 Skin: no rashes, warm and dry normal turgor Neurologic: PERRL, EOMI, accommodation nl, no face palsy, no dysarthria CN's II- XI intact bilaterally and moves all extremities Psychiatric: A+Ox3, euthymic affect Lymphatic: no cervical or axillary lymphadenopathy : deferred Discharge Data Allergies Allergy/AdvReac Type Severity Reaction Status Date / Time Penicillins Allergy Unknown Verified 04/19/22 01:52 Consultations 04/19/22 03:52 ED Decision to Admit Stat 04/19/22 06:58 Consult Gastroenterology Routine Ordered Studies 04/19/22 04:54 CT Abd and Pelvis [CT abd pelvis IV con only] Stat Hospital Course (1) UGIB (upper gastrointestinal bleed): (2) COVID-19: Plan Patient is a 71-year-old female with past medical historyignificant for hypertension, hyperlipidemia, DM2 on oral medications, past history of pancreatitis, history of PE status post anticoagulation, mood disorder. She was admitted to the hospital with following condition: Possible upper GI bleed: Transient hematemesis prior to admission. None since admission CT Abdomen showed mild distal esophageal wall thickening showed esophagitis; GI was consulted; recommended outpatient EGD. Hemoglobin remained stable at 13 Discharged on Protonix twice daily as per GI recommendation till EGD is done. COVID-19 infection Was in room air throughout hospitalization Chest x-ray did not show any pneumonia. Patient discharged home with instruction to follow-up with primary care doctor. Total Time Total Time Spent Total Time Spent (In Minutes): 35 Total Time Includes: Examination of the Patient, Discharge Planning, Medication Reconciliation, Communication With Other Providers and Other Discharge Plan Discharge Items Patient Disposition: Home - Self-Care Reason For Visit: UGIB, COVID Discharge Diagnosis: Upper GI bleed COVID-19 infection Activity: Resume your previous activity Non-emergency contact: Primary Care Provider Call non-emergency contact if: you have any medication questions and your symptoms worsen Follow-up/Referrals: Vy Mcclendon, [Primary Care Provider] - (Date & Time 04/29/2022 2:20 PM Provider Chacho Murray MD Department [facility] ) Diet: Regular Addtl Attending Provider Instructions: You were admitted here with blood in your vomit. GI doctor saw you while you are hospitalized. They recommended you to be on acid Protonix twice daily to be taken till you have the endoscopy. Prescription for 1 month of the medication is sent to your pharmacy. You are also found to have COVID-19 infection. You had chest x-ray done during your hospitalization which did not show any pneumonia. Please follow-up with your primary care doctor as scheduled on April 29. Pending Studies at Discharge: No Stand-Alone Forms: My [employer], Smoking Cessation Medications and DC Order Prescriptions: New pantoprazole [Protonix] 40 mg tablet,delayed release (DR/EC) 40 mg PO BID 30 Days Qty: 60 0RF Continued atorvastatin 40 mg Tablet 40 mg PO DAILY lisinopril 2.5 mg Tablet 2.5 mg PO DAILY Jardiance 25 mg Tablet 25 mg PO DAILY Trulicity 0.75 mg/0.5 mL Pen Injector 0.75 mg SUBCUT WK Lexapro 10 mg PO DAILY glimepiride 2 mg PO DAILY Discharge Orders: Discharge Order (Routine); Ordered 04/21/22 Ordered By: Jamarcus Riggs/Other Patient Handouts: Managing Type 2 Diabetes Admission Data Admit Date/Time: 04/19/22 18:40 Attending Provider: Jamarcus Aguero Admit Provider: Venkata Kumari Primary Care Provider: Vy Mcclendon Other Providers: Venkata Kumari ; Latoya Rizzo ; Darian Marie ; Ana Hendricks ; Salma Fischer ; Umu Muñoz ; Bhumika Queen ; Serafin Angel ; Hosea Jones ; Marisela Lund ; Mike Osorio ; Tristian Waters ; Yue Carrera ; Lizzy Barbosa ; Rosie Leon ; Kadie Mace ; Chelsie Forbes ; Dashawn Griffith ; Thad Dixon ; Suzie Juarez ; Anderson Flores Jr Other Interventions: Discharge Summary Assessment (RN) Last Done: 04/21/22 14:58
== END 2022-04-21 16:48 | disposition home or self-care (01) | DRG 178 ==
LOC: EDINP 01:26 → ED 01:26 → 2N 06:23 → SUATTDRO 18:40 → 2N 20:37